=== PATIENT | female | born 1955 | race Caucasian/White ===

== ENCOUNTER 2016-08-19 13:55 | Outpatient (CLI) | payer OTHER | END 2016-08-19 18:52 | disposition home or self-care (01) | LOC: SRD 13:55 | PROVIDERS: ATTEND Family Medicine | DX: S69.91XA Unspecified injury of right wrist, hand and finger(s), initial encounter (principal); M19.041 Primary osteoarthritis, right hand; Y99.8 Other external cause status; X58.XXXA Exposure to other specified factors, initial encounter; Y93.89 Activity, other specified; Y92.89 Other specified places as the place of occurrence of the external cause; I70.90 Unspecified atherosclerosis | CPT/HCPCS: 73140-TC ==

== ENCOUNTER 2016-12-23 11:29 | Outpatient (CLI) | payer OTHER | END 2016-12-23 19:18 | disposition home or self-care (01) | LOC: SRD 11:29 | PROVIDERS: ATTEND Family Medicine | DX: C50.919 Malignant neoplasm of unspecified site of unspecified female breast (principal); M47.899 Other spondylosis, site unspecified; M41.80 Other forms of scoliosis, site unspecified; I70.90 Unspecified atherosclerosis | CPT/HCPCS: 71020-TC ==

== ENCOUNTER 2017-04-02 13:12 | Outpatient (CLI) | payer OTHER | END 2017-04-02 21:19 | disposition home or self-care (01) | LOC: SMA 13:12 | PROVIDERS: ATTEND Family Medicine | DX: R92.8 Other abnormal and inconclusive findings on diagnostic imaging of breast (principal); Z85.3 Personal history of malignant neoplasm of breast; Z92.21 Personal history of antineoplastic chemotherapy; Z92.3 Personal history of irradiation | CPT/HCPCS: 76641; G0204 ==

== ENCOUNTER 2018-04-07 13:07 | Outpatient (CLI) | payer OTHER | END 2018-04-07 19:10 | disposition home or self-care (01) | LOC: SMA 13:07 | PROVIDERS: ATTEND Family Medicine | DX: Z12.31 Encounter for screening mammogram for malignant neoplasm of breast (principal) | CPT/HCPCS: 77067 ==

== ENCOUNTER 2020-05-30 08:43 | Outpatient (CLI) | payer OTHER | END 2020-05-30 20:53 | disposition home or self-care (01) | LOC: SUS 08:43 | PROVIDERS: ATTEND Family Medicine | DX: I70.203 Unspecified atherosclerosis of native arteries of extremities, bilateral legs (principal) | CPT/HCPCS: 93923 ==